=== PATIENT | male | born 1975 | race Caucasian/White ===

== ENCOUNTER 2017-05-09 10:43 | Emergency (ER) | payer BC ==
[~2017-05-09] VITALS: Ht 175.3 cm; Wt 98.0 kg
[2017-05-09 11:00] VITALS: Ht 175.3 cm; Wt 98.0 kg
--- NOTE | 2017-05-09 13:13 | ERD ---
ER Documentation Chief Complaint Date/Time DATE: 05/09/17 TIME: 13:00 Chief Complaint Complains of abdominal pain and constaipation x 13 hours HPI 41-year-old male who presented emergency department for constipation for about 17 hours. Has a feeling of moving his bowels but unable. Last bowel movement was 2 days ago. Denies headache, dizziness, blurry vision, neck pain, shoulder pain, chest pain, back pain, abdominal pain, nausea, vomiting, urinary symptoms , trauma, recent travel, recent exposure to any illness, recent antibiotic use in the last 3 months, fever, chills. No known drug allergies. No past medical history. No surgical history. Does not take any prescription medication at home. Does not work at this time. Denies smoking, use of illegal drugs. Occasional drinks alcoholic beverages. ROS All systems reviewed and are negative except as per history of present illness. Allergies Allergies: Coded Allergies: No Known Allergy (Unverified , 05/09/17) Physical Exam Vitals Vital Signs Date Time Temp Pulse Resp B/P Pulse Ox O2 Delivery O2 Flow Rate FiO2 05/09/17 11:00 99.8 78 20 149/76 97 Physical Exam Const: [] Head: Atraumatic Eyes: Normal Conjunctiva ENT: Normal External Ears, Nose and Mouth. Neck: Full range of motion..~ No meningismus. Resp: Clear to auscultation bilaterally Cardio: Regular rate and rhythm, no murmurs Abd: Soft, non tender, non distended. Normal bowel sounds. There is no right upper/right lower/epigastric/left upper/left lower abdominal tenderness and light and deep palpation. Negative [place] sign. Negative psoas sign. Negative on Rovsing's sign. Able to jump 10 times without developing right- sided abdominal pain. Rectal area: Has no hemorrhoids. No bleeding. Skin: No petechiae or rashes Back: No midline or flank tenderness Ext: No cyanosis, or edema Neur: Awake and alert Psych: Normal Mood and Affect Procedures/MDM Examination: Please see physical examination. Patient agreed with the diagnostic test, treatment, plan of care. Re-evaluation: Denies headache, dizziness, blurry vision, neck pain, shoulder pain, chest pain, back pain, abdominal pain, nausea, vomiting. No episode of emesis in the emergency department. Alert and oriented 4. Speaks full and clear sentences. Respirations even and unlabored. Lung sounds clear to auscultation. Active bowel sounds. There is no right upper/right lower/ epigastric/left upper/left lower abdominal tenderness and light and deep palpation. Negative on Rovsings sign. Negative [place] sign. Able to jump 5 times without developing right-sided abdominal pain. No peritoneal signs. Ambulatory with steady gait. No neurovascular deficits. No neurological deficits. X-ray (KUB): There is mild retained feces in the cecum. Impression: Unremarkable abdominal radiograph. Differential diagnosis: Cholecystitis versus pancreatitis versus appendicitis versus pyelonephritis versus obstruction versus diverticulitis versus diverticulosis versus liver disease versus urinary tract infection versus constipation Medical decision making:Discharge with a final diagnosis of constipation. Prescription: Miralax. Colace. Follow-up with primary care physician the next 24-48 hours. Come back here in the emergency department for any new symptoms or any worsening of symptoms. All questions and concerns are answered. Patient verbalized understanding and agreed with the plan of care. Hemodynamically stable on discharge. Departure Diagnosis: Primary Impression: Constipation Condition: Stable Additional Instructions: Follow-up with primary care physician the next 24-48 hours. Come back here in the emergency department for any new symptoms or any worsening of symptoms. All questions and concerns are answered. Patient verbalized understanding and agreed with the plan of care. LUIZ CHAUDHRY May 09, 2017 13:13
--- NOTE | 2017-05-09 13:45 | RADRPT ---
PROCEDURE: XR Abdomen. CLINICAL INDICATION: TECHNIQUE: AP abdomen x-ray. COMPARISON: None. FINDINGS: The bowel gas pattern is normal. There is no evidence of obstruction. There are no abnormal calcific ations overlying the urinary tracts. The osseous structures are unremarkable. There is mild retaine d feces in the cecum. IMPRESSION: Unremarkable abdomen radiograph. RPTAT: HH .Bandar Zavala MD, Date Time Electronically viewed and signed by .Bandar Zavala MD, on 05/09/2017 13:45 .L/
== END 2017-05-09 14:58 | disposition home or self-care (01) ==
LOC: FTE 10:43
DX: K59.00 Constipation, unspecified (principal)
CPT/HCPCS: 74000

== ENCOUNTER 2017-08-15 11:46 | Inpatient (IN) | payer BC ==
[~2017-08-15] VITALS: Ht 182.9 cm; Wt 89.7 kg
[2017-08-15] VITALS (13 sets, daily range): BP systolic 122–145; BP diastolic 64–85; PULSE 84–102; RESP 18–21; Ht 182.9 cm; Wt 89.7 kg
[2017-08-15] MEDS ORDERED: ONDANSETRON 4 MG INJ IV STA (12:09)
[2017-08-15] MEDS ORDERED: SOD CHLORIDE 0.9% 1,000 ML IV STA (12:09)
[2017-08-15] MEDS ORDERED: morphine 4 MG/ML VIAL IV STA (12:09)
--- NOTE | 2017-08-15 12:54 | RADRPT ---
PROCEDURE: CT ABDOMEN AND PELVIS WITHOUT CONTRAST. CLINICAL INDICATION: Generalized abdominal pain worsening right lower quadrant pain TECHNIQUE: CT scan of the abdomen and pelvis without contrast was performed on a multidetector hig h-resolution CT scanner. The patient was scanned without intravenous contrast. Coronal and sagittal reformatted images were obtained from the axial source images. Images were reviewed on a high-resol [employer] PACS workstation. The total exam CTDI equals 15.1 mGy and the total exam DLP equals 944 mGy-cm . One or more of the following dose reduction techniques were used: Automated exposure control. Adjustment of the mA and/or kV according to patient size. Use of iterative reconstruction technique. DICOM images are available COMPARISON: None FINDINGS: CT abdomen: The lung bases are clear. The heart size is within normal limits. There is no significant pericardia l effusion. Hepatic morphology is within limits. No gross contour deforming masses. There is diffuse fatty infil tration of the liver. Gallbladder is unremarkable. No evidence of intrahepatic or extrahepatic bilia ry dilatation. The spleen and pancreas are within normal limits. Both adrenal glands are within normal limits. Both kidneys are in normal anatomic position. No evidence of obstruction or hydronephrosis. No gross renal/ureteric calculi. The visualized GI tract demonstrate normal caliber loops of small and large bowel. No evidence of mateo wel obstruction. Fluid-filled loops of small and large bowel are identified. There are several loops of mildly dilated fluid-filled small bowel. The appendix is dilated and fluid-filled with mild [place] fat stranding. Mesenteric fat stranding with several mesenteric lymph nodes are noted within th e upper abdomen. The unenhanced aorta is unremarkable. There is no significant retroperitoneal lymphadenopathy. CT pelvis: The bladder is within normal limits. The prostate gland is normal size. The rectosigmoid colon demon strates stool. No significant free fluid. No significant pelvic lymphadenopathy. The visualized osseous structures appears to be within normal limits. IMPRESSION: 1. FINDINGS DESCRIBED ABOVE ARE HIGHLY CONCERNING FOR ACUTE APPENDICITIS. THERE IS A FLUID-FILLED DILATED APPENDIX WITH MILD ADJACENT FAT STRANDING. Correlate with clinical findings. No perforation or focal fluid collections at this time. 2. Multiple fluid-filled loops of small bowel which are mildly dilated, likely consistent with react narayan ileus. 3. Upper abdominal mesenteric ground-glass opacification and multiple lymph nodes, suggestive of mes enteric panniculitis. 4. Fatty liver. Critical findings were discussed with ANGIE Rico @ 12:52 PM on 08/15/17 RPTAT: AAPP Clementina Reyes Physician Date Time Electronically viewed and signed by Clementina Reyes Physician on 08/15/2017 12:53 JL/
[2017-08-15 13:01] LABS: BASOPHILS % 0.2 % (0.0-2.0); EOSINOPHILS # 0.1 10^3/ul (0.0-0.5); EOSINOPHILS % 0.4 % (0.0-7.0); HEMATOCRIT 44.9 % (42.0-52.0); HEMOGLOBIN 15.7 g/dl (14.0-18.0); LYMPHOCYTES # 1.2 10^3/ul (0.8-2.9); LYMPHOCYTES % 8.6 % (15.0-51.0); MEAN CORPUSCULAR HEMOGLOBIN 33.5 pg (29.0-33.0); MEAN CORPUSCULAR VOLUME 95.7 fl (82.0-101.0); MEAN PLATELET VOLUME 10.6 fl (7.4-10.4); MONOCYTE # 0.8 10^3/ul (0.3-0.9); MONOCYTES % 5.9 % (0.0-11.0); NEUTROPHILS % 84.5 % (39.0-77.0); PLATELET COUNT 215 10^3/UL (140-415); RED BLOOD COUNT 4.69 10^6/ul (4.70-6.10); WHITE BLOOD COUNT 14.2 10^3/ul (4.8-10.8)
[2017-08-15 13:15] LABS: ADD UMIC YES; UR ASCORBIC ACID NEGATIVE (NEGATIVE); UR BILIRUBIN (Dip) NEGATIVE (NEGATIVE); UR BLOOD (Dip) 1+ mg/dL (NEGATIVE); UR CLARITY CLEAR (CLEAR); UR COLOR AMBER (YELLOW); UR GLUCOSE (Dip) NEGATIVE (NEGATIVE); UR KETONES (Dip) 1+ mg/dL (NEGATIVE); UR LEUKOCYTE ESTERASE (Dip) NEGATIVE Leu/ul (NEGATIVE); UR MUCUS FEW /HPF (NONE SEEN); UR NITRITE (Dip) NEGATIVE (NEGATIVE); UR RBC 7 /HPF (0-5); UR SPECIFIC GRAVITY (Dip) 1.029 (1.003-1.030); UR TOTAL PROTEIN (Dip) 2+ mg/dl (NEGATIVE); UR UROBILINOGEN (Dip) 2+ mg/dL (NEGATIVE)
[2017-08-15 13:25] LABS: ALBUMIN 4.3 g/dl (3.3-4.9); ALBUMIN/GLOBULIN RATIO 1.16; BILIRUBIN,INDIRECT 1.9 mg/dl (0-1.1); BILIRUBIN,TOTAL 1.9 mg/dl (0.2-1.3); CALCIUM 9.6 mg/dl (8.4-10.2); CREATININE 1.01 mg/dl (0.61-1.24); POTASSIUM 4.1 mmol/L (3.5-5.1)
[2017-08-15] MEDS ORDERED: PIPER-TAZO 3.375 GM IV (PMX) 50 ML IV ONE (14:00)
--- NOTE | 2017-08-15 14:37 | ERD ---
ER Documentation Chief Complaint Chief Complaint abdominal pain x 2 days, sent from clinic HPI 42-year-old male patient with no significant past medical history presents to the ED complaining of abdominal pain that started 2 days ago. Patient reports that he did have an episode of abdominal pain 3 months ago but feels worse. States that initially it started in the left lower quadrant and it started to radiate to his periumbilical region and now is currently in the right lower quadrant. Reports that he had normal bowel movement yesterday. States that his last meal was yesterday. States that he had 3 episodes of nonbilious nonbloody vomiting. Reports that the pain feels sharp and rates it a 8 out of 10. States that it is intermittent and was a gradual onset. He has been taking Tylenol and Colace minimal relief of his symptoms. Denies any chest pain , shortness of breath, or, diarrhea, constipation, melena, hematemesis. Denies any scrotal pain, hematuria, urgency, frequency. States that he was seen at urgent care and the tested his urine which was positive for hematuria. Denies any history of nephrolithiasis. ROS All systems reviewed and are negative except as per history of present illness. Medications Home Meds Active Scripts Metronidazole (Flagyl) 500 Mg Tab, 500 MG PO Q8, #27 TAB Prov:HERBIE GODOY 08/16/17 Levofloxacin* (Levaquin*) 500 Mg Tablet, 500 MG PO DAILY, #9 TAB Prov:HERBIE GODOY 08/16/17 Allergies Allergies: Coded Allergies: No Known Allergy (Unverified , 08/15/17) PMhx/Soc Medical and Surgical Hx: pt denies Medical Hx History of Surgery: Yes (Abcess removal and fibromytosis removal on the finger) Anesthesia Reaction: No Hx Alcohol Use: Yes (Occasionally) Hx Substance Use: No Hx Tobacco Use: No Smoking Status: Never smoker Physical Exam Vitals Vital Signs Date Time Temp Pulse Resp B/P Pulse Ox O2 Delivery O2 Flow Rate FiO2 08/15/17 11:50 99.1 97 18 133/85 99 Physical Exam Const: [id number], well-nourished. In no acute distress. Head: Atraumatic, normocephalic Eyes: Normal Conjunctiva without injection. No purulent discharge. ENT: Normal external ear, nose. Moist oropharynx without tonsillar exudates. Non -erythematous pharynx. Uvula midline. No drooling. No trismus. Neck: No cervical midline tenderness. Full range of motion. No meningismus. No cervical lymphadenopathy. No JVD. Resp: Clear to auscultation bilaterally. No wheezing, rhonchi, rales, or crackles. No accessory muscle use. No retractions. Cardio: Regular rate and rhythm. No murmurs, rubs or gallops. Abd: Soft, left and right lower quadrant tenderness, non distended. Normal bowel sounds. No palpable masses. No rebound tenderness. No guarding. Negative McBurney's point. Negative psoas sign. Negative obturator sign. Skin: No petechiae or rashes Back: No midline tenderness. No CVA tenderness. Ext: No cyanosis, or edema. Neur: Awake and alert. Normal gait. Normal coordination. Psych: Normal Mood and Affect Result Diagram: 08/16/17 0539 08/16/17 0539 Results 24 hrs Laboratory Tests Test 08/15/17 12:50 White Blood Count 14.210^3/ul Red Blood Count 4.6910^6/ul Hemoglobin 15.7g/dl Hematocrit 44.9% Mean Corpuscular Volume 95.7fl Mean Corpuscular Hemoglobin 33.5pg Mean Corpuscular Hemoglobin Concent 35.0g/dl Red Cell Distribution Width 12.0% Platelet Count 37600^3/UL Mean Platelet Volume 10.6fl Neutrophils % 84.5% Lymphocytes % 8.6% Monocytes % 5.9% Eosinophils % 0.4% Basophils % 0.2% Nucleated Red Blood Cells % 0.0/100WBC Neutrophils # 12.010^3/ul Lymphocytes # 1.210^3/ul Monocytes # 0.810^3/ul Eosinophils # 0.110^3/ul Basophils # 0.010^3/ul Nucleated Red Blood Cells # 0.010^3/ul Urine Color JUVENTINO Urine Clarity CLEAR Urine pH 6.0 Urine Specific [place] 1.029 Urine Ketones 1+mg/dL Urine Nitrite NEGATIVEmg/dL Urine Bilirubin NEGATIVEmg/dL Urine Urobilinogen 2+mg/dL Urine Leukocyte Esterase NEGATIVELeu/ul Urine Microscopic RBC 7/HPF Urine Microscopic WBC 2/HPF Urine Mucus FEW/HPF Urine Hemoglobin 1+mg/dL Urine Glucose NEGATIVEmg/dL Urine Total Protein 2+mg/dl Sodium Level 138mmol/L Potassium Level 4.1mmol/L Chloride Level 99mmol/L Carbon Dioxide Level 28mmol/L Anion Gap 15 Blood Urea Nitrogen 14mg/dl Creatinine 1.01mg/dl Glucose Level 105mg/dl Calcium Level 9.6mg/dl Total Bilirubin 1.9mg/dl Direct Bilirubin 0.00mg/dl Indirect Bilirubin 1.9mg/dl Aspartate Amino Transf (AST/SGOT) 25IU/L Alanine Aminotransferase (ALT/SGPT) 59IU/L Alkaline Phosphatase 92IU/L Total Protein 8.0g/dl Albumin 4.3g/dl Globulin 3.70g/dl Albumin/Globulin Ratio 1.16 Lipase 17U/L Current Medications Medications (Trade) Dose Ordered Sig/Jia Route PRN Reason Start Time Stop Time Status Last Admin Dose Admin Sodium Chloride (NS) 1,000 ml @ 1,000 mls/hr Q1H STAT IV 08/15/17 12:08/15/17 13:08 DC 08/15/17 12:25 Morphine Sulfate (morphine) 4 mg ONCE STAT IV 08/15/17 12:09 08/15/17 12:14 DC 08/15/17 12:26 Ondansetron HCl 4 mg 4 mg ONCE STAT IV 08/15/17 12:09 08/15/17 12:14 DC 08/15/17 12:25 Piperacillin Sod/ Tazobactam Sod (Zosyn 3.375gm/ 50 ml (Pmx)) 50 ml @ 100 mls/hr ONCE ONCE IV 08/15/17 14:00 08/15/17 14:29 DC 08/15/17 13:56 Procedures/MDM This is a 42-year-old male patient with no significant past medical history presents to the ED complaining of abdominal pain that started 2 days ago. Patient is afebrile nontoxic appearing. Patient has normal vital signs. Patient was further worked up with CBC, CMP, lipase, UA, CT of the abdomen and pelvis without contrast. Patient's pain and symptoms have improved after treatment with 4 mg IV Zofran, 4 mg IV morphine, 1 L normal saline. CBC: Leukocytosis 14.2 with slight left shift. No e/o of systemic infection. No e/o anemia. CMP: No e/o severe acidosis, alkalosis, renal failure, diabetic ketoacidosis, liver disease Lipase within normal limits. Urine: No leukocyte esterase, no nitrites, 2+ hematuria. PROCEDURE: CT ABDOMEN AND PELVIS WITHOUT CONTRAST. CLINICAL INDICATION: Generalized abdominal pain worsening right lower quadrant pain TECHNIQUE: CT scan of the abdomen and pelvis without contrast was performed on a multidetector high-resolution CT scanner. The patient was scanned without intravenous contrast. Coronal and sagittal reformatted images were obtained from the axial source images. Images were reviewed on a high-resolution PACS workstation. The total exam CTDI equals 15.1 mGy and the total exam DLP equals 944 mGy-cm. One or more of the following dose reduction techniques were used: Automated exposure control. Adjustment of the mA and/or kV according to patient size. Use of iterative reconstruction technique. DICOM images are available COMPARISON: None FINDINGS: CT abdomen: The lung bases are clear. The heart size is within normal limits. There is no significant pericardial effusion. Hepatic morphology is within limits. No gross contour deforming masses. There is diffuse fatty infiltration of the liver. Gallbladder is unremarkable. No evidence of intrahepatic or extrahepatic biliary dilatation. The spleen and pancreas are within normal limits. Both adrenal glands are within normal limits. Both kidneys are in normal anatomic position. No evidence of obstruction or hydronephrosis. No gross renal/ureteric calculi. The visualized GI tract demonstrate normal caliber loops of small and large bowel. No evidence of bowel obstruction. Fluid-filled loops of small and large bowel are identified. There are several loops of mildly dilated fluid-filled small bowel. The appendix is dilated and fluid-filled with mild adjacent fat stranding. Mesenteric fat stranding with several mesenteric lymph nodes are noted within the upper abdomen. The unenhanced aorta is unremarkable. There is no significant retroperitoneal lymphadenopathy. CT pelvis: The bladder is within normal limits. The prostate gland is normal size. The rectosigmoid colon demonstrates stool. No significant free fluid. No significant pelvic lymphadenopathy. The visualized osseous structures appears to be within normal limits. IMPRESSION: 1. FINDINGS DESCRIBED ABOVE ARE HIGHLY CONCERNING FOR ACUTE APPENDICITIS. THERE IS A FLUID-FILLED DILATED APPENDIX WITH MILD ADJACENT FAT STRANDING. Correlate with clinical findings. No perforation or focal fluid collections at this time. 2. Multiple fluid-filled loops of small bowel which are mildly dilated, likely consistent with reactive ileus. 3. Upper abdominal mesenteric ground-glass opacification and multiple lymph nodes, suggestive of mesenteric panniculitis. 4. Fatty liver. He was noted to have appendicitis on his CT scan, mildly dilated small intestine likely reactive ileus and possible mesenteric panniculitis. Low suspicion for testicular torsion, gastritis, GERD, peptic ulcer disease, cholecystitis, choledocholithiasis, cholangitis, pancreatitis, appendicitis, bowel obstruction, ileus, volvulus, nephrolithiasis, pyelonephritis, hepatitis, perforated viscus, diverticulitis, abdominal hernia, mesenteric ischemia or other emergent conditions. This case was discussed with my supervising physician, Dr. Sharp who agreed with the management and discharge plan for patient to be admitted with a surgical consultation with Dr. Perez. Dr. Perez was also consulted and agreed to admission. Patient Is hemodynamically stable. Patient agreed to admission. Patient's questions were answered. Departure Diagnosis: Primary Impression: Appendicitis Appendicitis type: acute appendicitis Acute appendicitis type: other Qualified Code: K35.89 - Other acute appendicitis Condition: Fair JULIA DAUGHERTY PA-C Aug 15, 2017 14:37
--- NOTE | 2017-08-15 14:44 | QN ---
Documentation Comment I have seen and evaluated the patient along with the PA and/or TOOL CARRIER provider. I agree with the evaluation and plan of care. Please see their documentation for full ER course and evaluation. In short: The patient has right lower quadrant abdominal pain Assessment and plan: CT imaging shows evidence of acute appendicitis. Patient appropriately given antibiotics. N.p.o. Dr. Perez aware. Accepting care team and consultations: I discussed the current laboratory data, diagnostic imaging and emergency care provided. Admitting team: Dr. Toussaint Admitting team indication: Insurance directed Consulting services: Dr. Perez, general surgeon KSENIA TRACY MD Aug 15, 2017 14:44
[2017-08-15] MEDS ORDERED: ACETAMINOPHEN 325 MG TAB PO PRN ×3 (15:00→18:30)
[2017-08-15] MEDS ORDERED: ONDANSETRON 4 MG INJ IV PRN ×4 (15:00→19:00)
[2017-08-15] MEDS ORDERED: SOD CHLORIDE 0.9% 1,000 ML IV SCH (15:40)
--- NOTE | 2017-08-15 15:52 | HP ---
Date/Time of Note Date/Time of Note DATE: 08/15/17 TIME: 15:45 Assessment/Plan VTE Prophylaxis VTE Prophylaxis Intervention: ambulation, SCD's Assessment/Plan Chief Complaint/Hosp Course Objective Physical exam General: Patient is laying in bed and answers questions appropriately Mentation: Patient is alert and oriented 4, Head: Normocephalic atraumatic Eyes: EOMI, pupils reactive to light Neck: Supple, nontender, midline Respiratory: Clear to auscultation bilaterally Cardiovascular: regular rate, no obvious murmurs Gastrointestinal: moderately tender to palpation worse in the RLQ vs LLQ, bowel sounds heard. Neurological: Moves all extremities spontaneously Skin: No new skin lesions Assessment and plan Acute appendicitis -General surgery notified -IV antibiotics and IV fluids -N.p.o. Panniculitis -Antibiotics -Questionable sequelae of appendicitis -GI recommendations appreciated Abdominal pain -Secondary to acute appendicitis Disposition -General surgery recommendations appreciated Problems: HPI/ROS Admit Date/Time Admit Date/Time Hx of Present Illness Patient is a 42-year-old male with no past medical history who presents to [facility] with a 2 day onset of abdominal pain. Patient stated that 2 days ago the abdominal pain started on his left lower quadrant moving to his periumbilical area and then now is on his right lower quadrant. Patient states that he is mildly nauseated and still has moderate to significant amounts of pain, however is currently medicated with pain medication. Patient is sitting in ER bed and is under no acute distress except for some mild abdominal pain and has no other issues at this time. Patient denies chest pain, shortness of breath, vomiting, leg pain, debility PMH: None PSH: None Social: Occasional alcohol, denies smoking denies drugs Meds: None PMH/Family/Social Social History Smoking Status: Never smoker Exam/Review of Systems Vital Signs Vitals Vital Signs Date Time Temp Pulse Resp B/P Pulse Ox O2 Delivery O2 Flow Rate FiO2 08/15/17 11:50 99.1 97 18 133/85 99 Labs Result Diagram: 08/15/17 1250 08/15/17 1250 Medications Medications Current Medications Sodium Chloride (NS) 1,000 ml @ 100 mls/hr Q10H IV ; Start 08/15/17 at 15:40; Status UNV Lorazepam (Ativan) 0.5 mg Q6H PRN IV ANXIETY; Start 08/15/17 at 16:00; Status UNV Ondansetron HCl (Zofran Inj) 4 mg Q6H PRN IV NAUSEA AND/OR VOMITING; Start 08/15/17 at 16:00; Status UNV Acetaminophen (Tylenol Tab) 650 mg Q6H PRN PO PAIN LEVEL 1-3 OR FEVER; Start 08/15/17 at 16:00; Status UNV Acetaminophen/ Hydrocodone Bitart (Wake (5/325)) 1 tab Q6H PRN PO PAIN LEVEL 4 -6; Start 08/15/17 at 16:00; Status UNV Hydromorphone HCl (Dilaudid) 0.5 mg Q4H PRN IV PAIN LEVEL 7-10; Start 08/15/17 at 16:00; Status UNV Bisacodyl (Dulcolax) 5 mg DAILY PRN PO CONSTIPATION; Start 08/15/17 at 16:00; Status UNV HERBIE GODOY Aug 15, 2017 15:52
[2017-08-15] MEDS ORDERED: BISACODYL (EC) 5 MG TAB PO PRN (16:00)
[2017-08-15] MEDS ORDERED: HYDROmorphONE 0.5 MG/0.5 ML SYG IV PRN (16:00)
[2017-08-15] MEDS ORDERED: HYDROCODONE/APAP (5/325) TAB PO PRN (16:00)
[2017-08-15] MEDS ORDERED: NACL 0.9% 3 ML SYG IV SCH (16:00)
[2017-08-15] MEDS ORDERED: LORAZEPAM 2 MG INJ IV PRN (16:00)
[2017-08-15] MEDS: PIPER-TAZO 3.375 GM IV (PMX) 50 ML IVPB SCH (17:47)
[2017-08-15] MEDS ORDERED: LIDOCAINE 1%/EPI 30 ML INJ ONE (17:57)
[2017-08-15] MEDS ORDERED: BUPIVACAINE 0.25% (MPF) 30 ML INJ ONE (17:57)
--- NOTE | 2017-08-15 17:57 | SIPON ---
Date/Time of Note Date/Time of Note DATE: 08/15/17 TIME: 17:56 Operative Report Preoperative Diagnosis Acute appendicitis Postoperative Diagnosis Same Operation/Procedure Performed Laparoscopic appendectomy Surgeon see signature line personnel security assistant None Anesthesia: general Estimated blood loss: minimal Transfusion Required none Specimen Appendix Grafts/Implants none Complications none MAUDE MATT MD Aug 15, 2017 17:57
--- NOTE | 2017-08-15 17:59 | OPR ---
Date/Time of Note Date/Time of Note DATE: 08/15/17 TIME: 17:57 Operative Report Procedure Date: Aug 15, 2017 Preoperative Diagnosis Acute appendicitis Postoperative Diagnosis Same Operation/Procedure Performed Laparoscopic appendectomy Surgeon see signature line Tube Winder None Anesthesia Type: general Anesthesiologist: FEDERICA AUGUSTINE Estimated Blood Loss: minimal Transfusion none Specimen Appendix Grafts/Implants none Complications none Pt Condition Post Procedure: stable Disposition: PACU Indications The patient is a 42-year-old male with a acute onset of generalized abdominal pain, localizing to the right lower quadrant. He presented to the ER and was diagnosed with acute appendicitis. I discussed laparoscopic, possible open appendectomy with the patient. All benefits, risks, alternatives discussed in detail. All questions answered. The patient elected to proceed. Procedure Description The patient was brought to operative room placed supine on the table. After preop antibiotics and SCDs were applied, the patient was intubated and the abdomen was cleaned, prepped, and draped in usual sterile fashion. All incisions were infiltrated with 1 spotting with epi house Marcaine prior to incision. A 5 mm incision was made in the umbilicus. Using a 5 minute laparoscopic containing trocar, the abdomen was entered direct vision insufflated 50 mm of CO2. Under direct vision, the following trochars were placed: A 5 mm right lower quadrant and a left lower quadrant 12 mm. There was some serosanguineous fluid in the pelvis. The appendix was visualized and was consistent with acute appendicitis.. I made a rent in the mesentery to base the appendix divided the cecum at the base of the appendix with a 35 mm Endo linear cutter white load. The appendiceal mesentery was then divided with a 35 mm Endo linear cutter white load. The appendix was then removed the 12 mm trocar site. I visualized my staple lines. T I then turned my attention to the pelvis. I irrigated out the right lower quadrant and pelvis until effluent was clear. I desufflated the abdomen moved all trochars. The fascia of the 12 mm trocar site was closed with 0 Vicryl. Skin incisions were all closed with 4 Monocryl, Mastisol, and Steri-Strips. The patient tolerated the procedure well, was extubated in the OR, transferred to the recovery room stable condition. MAUDE MATT MD Jul 24, 2017 22:15 AMUDE MATT MD Aug 15, 2017 17:59
--- NOTE | 2017-08-15 18:04 | CONS ---
Date/Time of Note Date/Time of Note DATE: 08/15/17 TIME: 18:02 Assessment/Plan Assessment/Plan Additional Assessment/Plan Acute appendicitis Discussed laparoscopic, possible open, appendectomy with the patient. All benefits, risks, alternatives discussed in detail. All questions were answered. The patient elects to proceed Consultation Date/Type/Reason Admit Date/Time Date of Consultation: Aug 15, 2017 Hx of Present Illness The patient is a 42-year-old male who had acute onset of abdominal pain Saturday night. He also with associated nausea and emesis. His nausea and emesis improved but his abdominal pain persisted through Saturday. Last night it localized to right lower quadrant he presented to the ER here at [facility]. His workup in the ER was consistent with acute appendicitis and I was called for consultation. Past Medical History Medical History: no pertinent history Past Surgical History Past Surgical Hx: other (Minor surgical procedures) Family History Significant Family History: no pertinent family hx Social History Smoking Status: Never smoker Exam/Review of Systems Vital Signs Vitals Vital Signs Date Time Temp Pulse Resp B/P Pulse Ox O2 Delivery O2 Flow Rate FiO2 08/15/17 16:48 98.5 84 20 128/73 100 Room Air Exam Constitutional: alert, oriented, well developed Head: normocephalic Eyes: nl conjunctiva ENMT: nl external ears & nose Neck: supple Respiratory: clear to auscultation Cardiovascular: regular rate and rhythm Gastrointestinal: distended (Mildly), soft, tender (2 right lower quadrant) Musculoskeletal: nl extremities to inspection Neurological: [employer] II-XII intact Results Result Diagram: 08/15/17 1250 08/15/17 1250 Results 24 hrs Laboratory Tests Test 08/15/17 12:50 White Blood Count 14.2 H Red Blood Count 4.69 L Hemoglobin 15.7 Hematocrit 44.9 Mean Corpuscular Volume 95.7 Mean Corpuscular Hemoglobin 33.5 H Mean Corpuscular Hemoglobin Concent 35.0 Red Cell Distribution Width 12.0 Platelet Count 215 Mean Platelet Volume 10.6 H Neutrophils % 84.5 H Lymphocytes % 8.6 L Monocytes % 5.9 Eosinophils % 0.4 Basophils % 0.2 Nucleated Red Blood Cells % 0.0 Neutrophils # 12.0 H Lymphocytes # 1.2 Monocytes # 0.8 Eosinophils # 0.1 Basophils # 0.0 Nucleated Red Blood Cells # 0.0 Urine Color JUVENTINO Urine Clarity CLEAR Urine pH 6.0 Urine Specific Sutton 1.029 Urine Ketones 1+ H Urine Nitrite NEGATIVE Urine Bilirubin NEGATIVE Urine Urobilinogen 2+ H Urine Leukocyte Esterase NEGATIVE Urine Microscopic RBC 7 H Urine Microscopic WBC 2 Urine Mucus FEW A Urine Hemoglobin 1+ H Urine Glucose NEGATIVE Urine Total Protein 2+ H Sodium Level 138 Potassium Level 4.1 Chloride Level 99 Carbon Dioxide Level 28 Anion Gap 15 Blood Urea Nitrogen 14 Creatinine 1.01 Glucose Level 105 Calcium Level 9.6 Total Bilirubin 1.9 H Direct Bilirubin 0.00 Indirect Bilirubin 1.9 H Aspartate Amino Transf (AST/SGOT) 25 Alanine Aminotransferase (ALT/SGPT) 59 Alkaline Phosphatase 92 Total Protein 8.0 Albumin 4.3 Globulin 3.70 H Albumin/Globulin Ratio 1.16 Lipase 17 L Imaging Free Text/Dictation PROCEDURE: CT ABDOMEN AND PELVIS WITHOUT CONTRAST. CLINICAL INDICATION: Generalized abdominal pain worsening right lower quadrant pain TECHNIQUE: CT scan of the abdomen and pelvis without contrast was performed on a multidetector high-resolution CT scanner. The patient was scanned without intravenous contrast. Coronal and sagittal reformatted images were obtained from the axial source images. Images were reviewed on a high-resolution PACS workstation. The total exam CTDI equals 15.1 mGy and the total exam DLP equals 944 mGy-cm. One or more of the following dose reduction techniques were used: Automated exposure control. Adjustment of the mA and/or kV according to patient size. Use of iterative reconstruction technique. DICOM images are available COMPARISON: None FINDINGS: CT abdomen: The lung bases are clear. The heart size is within normal limits. There is no significant pericardial effusion. Hepatic morphology is within limits. No gross contour deforming masses. There is diffuse fatty infiltration of the liver. Gallbladder is unremarkable. No evidence of intrahepatic or extrahepatic biliary dilatation. The spleen and pancreas are within normal limits. Both adrenal glands are within normal limits. Both kidneys are in normal anatomic position. No evidence of obstruction or hydronephrosis. No gross renal/ureteric calculi. The visualized GI tract demonstrate normal caliber loops of small and large bowel. No evidence of bowel obstruction. Fluid-filled loops of small and large bowel are identified. There are several loops of mildly dilated fluid-filled small bowel. The appendix is dilated and fluid-filled with mild adjacent fat stranding. Mesenteric fat stranding with several mesenteric lymph nodes are noted within the upper abdomen. The unenhanced aorta is unremarkable. There is no significant retroperitoneal lymphadenopathy. CT pelvis: The bladder is within normal limits. The prostate gland is normal size. The rectosigmoid colon demonstrates stool. No significant free fluid. No significant pelvic lymphadenopathy. The visualized osseous structures appears to be within normal limits. IMPRESSION: 1. FINDINGS DESCRIBED ABOVE ARE HIGHLY CONCERNING FOR ACUTE APPENDICITIS. THERE IS A FLUID-FILLED DILATED APPENDIX WITH MILD ADJACENT FAT STRANDING. Correlate with clinical findings. No perforation or focal fluid collections at this time. 2. Multiple fluid-filled loops of small bowel which are mildly dilated, likely consistent with reactive ileus. 3. Upper abdominal mesenteric ground-glass opacification and multiple lymph nodes, suggestive of mesenteric panniculitis. 4. Fatty liver. Critical findings were discussed with ANGIE Rico @ 12:52 PM on 08/15/17 RPTAT: AAPP Physician Joslyn Date Time Electronically viewed and signed by Clementina Reyes Physician on 08/15/2017 12:53 Medications Medications Current Medications Sodium Chloride (NS) 1,000 ml @ 100 mls/hr Q10H IV Last administered on t 17:39; Admin Dose 100 MLS/HR; Start 08/15/17 at 15:40 Lorazepam (Ativan) 0.5 mg Q6H PRN IV ANXIETY; Start 08/15/17 at 16:00 Ondansetron HCl (Zofran Inj) 4 mg Q6H PRN IV NAUSEA AND/OR VOMITING; Start 08/15/17 at 16:00 Acetaminophen (Tylenol Tab) 650 mg Q6H PRN PO PAIN LEVEL 1-3 OR FEVER; Start 08/15/17 at 16:00 Acetaminophen/ Hydrocodone Bitart ([place] (5/325)) 1 tab Q6H PRN PO PAIN LEVEL 4 -6; Start 08/15/17 at 16:00 Hydromorphone HCl (Dilaudid) 0.5 mg Q4H PRN IV PAIN LEVEL 7-10; Start 08/15/17 at 16:00 Bisacodyl 5 mg 5 mg DAILY PRN PO CONSTIPATION; Start 08/15/17 at 16:00 Piperacillin Sod/ Tazobactam Sod (Zosyn 3.375gm/ 50 ml (Pmx)) 50 ml @ 100 mls/ hr Q6 IVPB Last administered on 08/15/17t 17:47; Admin Dose 100 MLS/HR; Start 08/15/17 at 19:00 MAUDE MATT MD Aug 15, 2017 18:04
[2017-08-15] MEDS ORDERED: PROPOFOL 20 ML ONE (18:07)
[2017-08-15] MEDS ORDERED: ROCURONIUM 50 MG INJ ONE (18:08)
[2017-08-15] MEDS ORDERED: morphine 2 MG INJ IV PRN (18:30)
[2017-08-15] MEDS ORDERED: OXYCODONE/ACETAMINOPHEN (5/325) TAB PO PRN (18:30)
[2017-08-15] MEDS ORDERED: KETOROLAC 30 MG INJ IV PRN (18:30)
[2017-08-15] MEDS ORDERED: SUGAMMADEX SODIUM 200 MG/2 ML VIAL IV ONE (18:45)
[2017-08-15] MEDS ORDERED: DEXAMETHASONE 4 MG/ML 1 ML INJ ONE (18:45)
[2017-08-15] MEDS ORDERED: EPHEDrine SULFATE 50 MG/5 ML SYG IV PRN (19:00)
[2017-08-15] MEDS ORDERED: METOCLOPRAMIDE 10 MG INJ IV PRN (19:00)
[2017-08-15] MEDS ORDERED: DIPHENHYDRAMINE 50 MG INJ IV PRN (19:00)
[2017-08-15] MEDS ORDERED: FENTAnyl 50 MCG/ML VIAL IV PRN ×3 (19:00)
[2017-08-15] MEDS ORDERED: MEPERIDINE 25 MG INJ IV PRN (19:00)
[2017-08-15] MEDS ORDERED: HYDROmorphONE (0.2 MG/ML) 10ML SYG IV PRN ×3 (19:00)
[2017-08-15] MEDS ORDERED: LABETALOL HCL 20MG INJ IV PRN (19:00)
[2017-08-15] MEDS ORDERED: ALBUTEROL 0.083% (NEB) 2.5 MG/3 ML AMP HHN PRN (19:00)
[2017-08-15] MEDS ORDERED: hydrALAzine 20 MG INJ IV PRN (19:00)
[2017-08-15] MEDS: D5-NS + KCL 20 MEQ 1,000 ML IV SCH (20:52)
[2017-08-16] MEDS ORDERED: PIPER-TAZO 3.375 GM IV (PMX) 50 ML IVPB SCH
[2017-08-16] MEDS: PIPER-TAZO 3.375 GM IV (PMX) 50 ML IVPB SCH ×4 (00:29→17:14)
[2017-08-16 02:00] VITALS: BP 118/78; RESP 19
[2017-08-16] MEDS ORDERED: ENOXAPARIN 40 MG/0.4 ML SYG SC ONE (05:44)
[2017-08-16] MEDS: D5-NS + KCL 20 MEQ 1,000 ML IV SCH ×3 (05:49→14:05)
[2017-08-16] MEDS ORDERED: ENOXAPARIN 40 MG/0.4 ML SYG SC SCH (07:00)
[2017-08-16 07:01] LABS: ALBUMIN 3.9 g/dl (3.3-4.9); CALCIUM 9.5 mg/dl (8.4-10.2); CREATININE 0.95 mg/dl (0.61-1.24); MAGNESIUM 2.3 mg/dl (1.7-2.5); POTASSIUM 4.5 mmol/L (3.5-5.1); TOTAL PROTEIN 7.8 g/dl (6.1-8.1)
[2017-08-16 07:15] VITALS: BP 131/84; RESP 16
[2017-08-16 07:56] LABS: HEMATOCRIT 42.5 % (42.0-52.0); HEMOGLOBIN 14.6 g/dl (14.0-18.0); LYMPHOCYTES # 0.6 10^3/ul (0.8-2.9); LYMPHOCYTES % 6.4 % (15.0-51.0); MEAN CORPUSCULAR HEMOGLOBIN 33.6 pg (29.0-33.0); MEAN CORPUSCULAR HGB CONC 34.4 g/dl (32.0-37.0); MEAN CORPUSCULAR VOLUME 97.7 fl (82.0-101.0); MEAN PLATELET VOLUME 10.8 fl (7.4-10.4); MONOCYTE # 0.4 10^3/ul (0.3-0.9); MONOCYTES % 4.4 % (0.0-11.0); NEUTROPHIL # 8.9 10^3/ul (1.6-7.5); NEUTROPHILS % 88.9 % (39.0-77.0); PLATELET COUNT 202 10^3/UL (140-415); RED BLOOD COUNT 4.35 10^6/ul (4.70-6.10); RED CELL DISTRIBUTION WIDTH 12.2 % (11.5-14.5)
[2017-08-16] MEDS ORDERED: METR500T14 PO (13:58)
[2017-08-16] MEDS ORDERED: LEVO500T72 PO (13:58)
[2017-08-16 14:09] VITALS: BP 130/77; RESP 16
--- NOTE | 2017-08-16 14:11 | DS ---
Date/Time of Note Date/Time of Note DATE: 08/16/17 TIME: 14:11 Discharge Summary Admission/Discharge Info Admit Date/Time Aug 15, 2017 at 14:43 Discharge Date/Time Patient Condition: Stable Hx of Present Illness Patient is a 42-year-old male with no past medical history who presents to [facility] with a 2 day onset of abdominal pain. Patient stated that 2 days ago the abdominal pain started on his left lower quadrant moving to his periumbilical area and then now is on his right lower quadrant. Patient states that he is mildly nauseated and still has moderate to significant amounts of pain, however is currently medicated with pain medication. Patient is sitting in ER bed and is under no acute distress except for some mild abdominal pain and has no other issues at this time. Patient denies chest pain, shortness of breath, vomiting, leg pain, debility PMH: None PSH: None Social: Occasional alcohol, denies smoking denies drugs Meds: None Hospital Course Patient is a 42-year-old male with no significant past medical history presented to [facility] with acute appendicitis. General surgery saw the patient and performed laparoscopic appendix removal and cleanout. Patient on CT also showed inflammation including panniculitis which is very likely sequelae of appendicitis in this particular patient. Patient was continued on Zosyn during his hospital stay. After the surgery patient's vital signs returned to normal and there was no elevation in white count, white count is within normal limits at discharge and patient will be discharged antibiotics to cover 9 more days. Patient is to follow with Dr. Perez general surgery within 1 week. Home Meds Active Scripts Metronidazole (Flagyl) 500 Mg Tab, 500 MG PO Q8, #27 TAB Prov:HERBIE GODOY 08/16/17 Levofloxacin* (Levaquin*) 500 Mg Tablet, 500 MG PO DAILY, #9 TAB Prov:HERBIE GODOY 08/16/17 Primary Care Provider Not On Staff Doctor Time spent on discharge: > 30 minutes Pending Labs Laboratory Tests Test 08/16/17 05:39 White Blood Count 10.010^3/ul (4.8-10.8) Red Blood Count 4.3510^6/ul (4.70-6.10) Hemoglobin 14.6g/dl (14.0-18.0) Hematocrit 42.5% (42.0-52.0) Mean Corpuscular Volume 97.7fl (82.0-101.0) Mean Corpuscular Hemoglobin 33.6pg (29.0-33.0) Mean Corpuscular Hemoglobin Concent 34.4g/dl (32.0-37.0) Red Cell Distribution Width 12.2% (11.5-14.5) Platelet Count 23680^3/UL (140-415) Mean Platelet Volume 10.8fl (7.4-10.4) Neutrophils % 88.9% (39.0-77.0) Lymphocytes % 6.4% (15.0-51.0) Monocytes % 4.4% (0.0-11.0) Eosinophils % 0.0% (0.0-7.0) Basophils % 0.0% (0.0-2.0) Nucleated Red Blood Cells % 0.0/100WBC (0.0-0.0) Neutrophils # 8.910^3/ul (1.6-7.5) Lymphocytes # 0.610^3/ul (0.8-2.9) Monocytes # 0.410^3/ul (0.3-0.9) Eosinophils # 0.010^3/ul (0.0-0.5) Basophils # 0.010^3/ul (0.0-0.1) Nucleated Red Blood Cells # 0.010^3/ul (0.0-0.0) Sodium Level 139mmol/L (135-144) Potassium Level 4.5mmol/L (3.5-5.1) Chloride Level 103mmol/L (97-110) Carbon Dioxide Level 26mmol/L (21-31) Anion Gap 15 (8-16) Blood Urea Nitrogen 12mg/dl (7-20) Creatinine 0.95mg/dl (0.61-1.24) Glucose Level 142mg/dl (70-220) Calcium Level 9.5mg/dl (8.4-10.2) Magnesium Level 2.3mg/dl (1.7-2.5) Total Bilirubin 1.0mg/dl (0.2-1.3) Direct Bilirubin 0.00mg/dl (0.00-0.20) Indirect Bilirubin 1.0mg/dl (0-1.1) Aspartate Amino Transf (AST/SGOT) 19IU/L (15-46) Alanine Aminotransferase (ALT/SGPT) 46IU/L (13-69) Alkaline Phosphatase 83IU/L (42-121) Total Protein 7.8g/dl (6.1-8.1) Albumin 3.9g/dl (3.3-4.9) Globulin 3.90g/dl (1.3-3.2) Albumin/Globulin Ratio 1.00 HERBIE GODOY Aug 16, 2017 14:11
== END 2017-08-16 19:55 | disposition home or self-care (01) | DRG 343 ==
LOC: FTE 11:46 → PP2 14:43
PROVIDERS: ADMIT Internal Medicine; ATTEND Internal Medicine
PROC: 0DTJ4ZZ Resection of Appendix, Percutaneous Endoscopic Approach (ICD-10-PCS; principal; 2017-08-15 21:00)
DX: K35.80 Unspecified acute appendicitis (principal)
CPT/HCPCS: 74176; 80053; 81001; 83690; 83735; 85025; 87040; J1100; J1650; J2175; J2270; J2405; J2543; J3010; J3480; J7030